=== PATIENT | female | born 1955 | race Caucasian/White ===

== ENCOUNTER 2016-10-23 12:00 | Emergency (ER) | payer OTHER ==
[~2016-10-23] VITALS: Wt 65.0 kg
[~2016-10-23 12:00] MED LIST: CALCIUM; DEPRESSION MED PO; LIPITOR PO; OMEPRZOLE PO; SLEEPING MED PO; VITAMIN D
[2016-10-23] MEDS ORDERED: ALBUTEROL 0.5% (NEB) 2.5 MG/0.5 ML AMP HHN STA (12:43)
[2016-10-23] MEDS ORDERED: predniSONE 20 MG TAB PO ONE (13:00)
[2016-10-23 13:17] LABS: BASOPHILS % 0.2 % (0.0-2.0); CONDITION 1; EOSINOPHILS # 0.1 10^3/ul (0.0-0.5); EOSINOPHILS % 1.1 % (0.0-7.0); HEMATOCRIT 38.5 % (37.0-47.0); HEMOGLOBIN 13.2 g/dl (12.0-16.0); LYMPHOCYTES # 4.5 10^3/ul (0.8-2.9); LYMPHOCYTES % 38.8 % (15.0-51.0); MEAN CORPUSCULAR HEMOGLOBIN 32.3 pg (29.0-33.0); MEAN CORPUSCULAR HGB CONC 34.2 g/dl (32.0-37.0); MEAN CORPUSCULAR VOLUME 94.3 fl (82.0-101.0); MEAN PLATELET VOLUME 8.1 fl (7.4-10.4); MONOCYTE # 0.9 10^3/ul (0.3-0.9); MONOCYTES % 7.7 % (0.0-11.0); NEUTROPHILS % 52.2 % (39.0-77.0); PLATELET COUNT 428 10^3/UL (140-440); RED BLOOD COUNT 4.08 10^6/ul (4.20-5.40); UNCORRECTED WBC 11.5 10^3/ul (4.8-10.8); WHITE BLOOD COUNT 11.5 10^3/ul (4.8-10.8)
[2016-10-23 13:23] LABS: ALBUMIN 4.1 g/dl (3.3-4.9)
[2016-10-23 13:24] LABS: POTASSIUM 4.1 mmol/L (3.5-5.1)
[2016-10-23 13:26] LABS: BILIRUBIN,INDIRECT 0.1 mg/dl (0-1.1); BILIRUBIN,TOTAL 0.1 mg/dl (0.2-1.3); CREATININE 0.69 mg/dl (0.44-1.00)
[2016-10-23 13:27] LABS: ALBUMIN/GLOBULIN RATIO 0.97; CALCIUM 9.1 mg/dl (8.4-10.2); TOTAL PROTEIN 8.3 g/dl (6.1-8.1)
--- NOTE | 2016-10-23 13:36 | RADRPT ---
PROCEDURE: XR Chest. CLINICAL INDICATION: Cough, dyspnea TECHNIQUE: Single frontal chest x-ray. COMPARISON: None. FINDINGS: No acute infiltrate, pleural effusion or pneumothorax is identified. Cardiomediastinal silhouette i s within normal limits. The osseous structures are unremarkable. IMPRESSION: 1. Unremarkable chest x-ray. RPTAT: PP .Cain Traylor MD, MD Date Time Electronically viewed and signed by .Cain Traylor MD, on 10/23/2016 13:35 .R/
[2016-10-23] MEDS ORDERED: ALBU18HF INHALATION (13:55)
[2016-10-23] MEDS ORDERED: AZIT250T94 PO (13:55)
[2016-10-23] MEDS ORDERED: PRED20TA PO (13:55)
--- NOTE | 2016-10-23 13:58 | ERD ---
ER Documentation Chief Complaint Date/Time DATE: 10/23/16 TIME: 13:55 Chief Complaint COUGH AND CONGESTION WITH SOME DIZZINES AND NAUSEA FOR 1 MONTH HPI This 61-year-old female is brought in by the family for cough and congestion intermittently for last month. She has also been having some nausea and decreased appetite. She possibly has complaints of dizziness as well. There is no history of fevers, chest pain, vomiting, abdominal pain, diarrhea. ROS All systems reviewed and are negative except as per history of present illness. Medications Home Meds Active Scripts Albuterol Sulfate* (Ventolin HFA*) 18 Gm Hfa.aer.ad, 2 PUFF INHALATION Q4H, #1 INHALER Prov:NANCY BOOTH MD 10/23/16 Prednisone* (Prednisone*) 20 Mg Tab, 40 MG PO DAILY for 4 Days, TAB Start October 24, 2016 Prov:NANCY BOOTH MD 10/23/16 Azithromycin* (Zithromax*) 250 Mg Tablet, 250 MG PO .ZPACK DIRECTED, #6 TAB TAKE 500 MG (2 TABS) THE FIRST DAY THEN 250 MG (1 TAB) DAYS 2-5 Prov:NANCY BOOTH MD 10/23/16 Reported Medications [Omeprzole] No Conflict Check, PO 03/17/14 [Lipitor] No Conflict Check, PO 03/17/14 [Sleeping Med] No Conflict Check, PO 03/17/14 [Depression Med] No Conflict Check, PO 03/17/14 [Vitamin D] No Conflict Check 03/17/14 [Calcium] No Conflict Check 03/17/14 Allergies Allergies: Coded Allergies: No Known Allergy (Unverified , 03/17/14) PMhx/Soc Anesthesia Reaction: No Hx Neurological Disorder: Yes (VERTIGO, MIGRAINES) Hx Respiratory Disorders: No Hx Cardiac Disorders: No Hx Psychiatric Problems: Yes (DEPRESSION) Hx Miscellaneous Medical Probl: No Hx Alcohol Use: No Hx Substance Use: No Hx Tobacco Use: Yes Smoking Status: Never smoker Physical Exam Vitals Vital Signs Date Time Temp Pulse Resp B/P Pulse Ox O2 Delivery O2 Flow Rate FiO2 10/23/16 13:24 78 24 94 21 10/23/16 12:22 98.0 76 18 136/71 97 Physical Exam Const: [] Alert, [id number]. Head: Atraumatic Eyes: Normal Conjunctiva ENT: Normal External Ears, Nose and Mouth. Neck: Full range of motion..~ No meningismus. Resp: Clear to auscultation bilaterally. There is slightly wheezy cough without significant wheeze or rales or at rest and no retractions. Cardio: Regular rate and rhythm, no murmurs Abd: Soft, non tender, non distended. Normal bowel sounds Skin: No petechiae or rashes Back: No midline or flank tenderness Ext: No cyanosis, or edema Neur: Awake and alert Psych: Normal Mood and Affect Result Diagram: 10/23/16 1300 10/23/16 1300 Results 24 hrs Laboratory Tests Test 10/23/16 13:00 Alanine Aminotransferase (ALT/SGPT) 74IU/L Albumin 4.1g/dl Albumin/Globulin Ratio 0.97 Alkaline Phosphatase 153IU/L Anion Gap 19 Aspartate Amino Transf (AST/SGOT) 35IU/L Basophils # 0.010^3/ul Basophils % 0.2% Blood Urea Nitrogen 22mg/dl Calcium Level 9.1mg/dl Carbon Dioxide Level 27mmol/L Chloride Level 104mmol/L Creatinine 0.69mg/dl Direct Bilirubin 0.00mg/dl Eosinophils # 0.110^3/ul Eosinophils % 1.1% Globulin 4.20g/dl Glucose Level 83mg/dl Hematocrit 38.5% Hemoglobin 13.2g/dl Indirect Bilirubin 0.1mg/dl Lymphocytes # 4.510^3/ul Lymphocytes % 38.8% Mean Corpuscular Hemoglobin 32.3pg Mean Corpuscular Hemoglobin Concent 34.2g/dl Mean Corpuscular Volume 94.3fl Mean Platelet Volume 8.1fl Monocytes # 0.910^3/ul Monocytes % 7.7% Neutrophils # 6.010^3/ul Neutrophils % 52.2% Nucleated Red Blood Cells # 0.010^3/ul Nucleated Red Blood Cells % 0.0/100WBC Platelet Count 28407^3/UL Potassium Level 4.1mmol/L Red Blood Count 4.0810^6/ul Red Cell Distribution Width 13.0% Sodium Level 146mmol/L Total Bilirubin 0.1mg/dl Total Protein 8.3g/dl White Blood Count 11.510^3/ul Current Medications Medications (Trade) Dose Ordered Sig/Ann Route PRN Reason Start Time Stop Time Status Last Admin Dose Admin Albuterol (Proventil 0.5% (Neb)) 2.5 mg ONCE STAT HHN 10/23/16 12:43 10/23/16 12:45 DC 10/23/16 13:24 Prednisone (Prednisone) 40 mg ONCE ONCE PO 10/23/16 13:00 10/23/16 13:01 DC 10/23/16 12:58 Procedures/MDM EKG: Rate/Rhythm: [Normal Sinus Rhythm] rate equals 75 QRS, ST, T-waves: [No changes consistent w/ acute ischemia] Impression: [No evidence of ischemia or arrhythmia] Chest X-ray 1V Interpreted by me: Soft Tissue: No acute abnormalities Bones: No acute abnormalities Mediastinum/Cardiac Silhouette/Lungs: [No acute abnormalities]. Impression- normal 1 view chest x-ray CBC shows very slight leukocytosis with a viral pattern and CMP shows no significant acute abnormalities, only slight transaminitis and elevated sodium and BUN.. Urine is negative for infection, nitrites, glucose, blood. Patient was given prednisone 40 mg by mouth and albuterol treatment 1. Patient had improved breath sounds and felt much better after observation treatment. Patient presents with cough and multiple complaints including dizziness decreased appetite for last month with no identifiable acute abnormalities. She did respond to albuterol for her wheezing and she will be treated with insulin, Zithromax and a short course of prednisone at home instructions to follow-up with primary doctor this week. Patient is advised otherwise return for fevers, blood, shortness breath, chest pain, new or worsening symptoms as directed and aftercare instruction. Examination today shows no evidence of hypoxemia, respiratory distress, CHF, acute coronary syndrome, pulmonary embolism, acute abdomen, UTI, additional emergent conditions . Departure Diagnosis: Primary Impression: Dizzy Additional Impression: URI, acute Condition: Stable Patient Instructions: Bronchitis With Wheezing (Adult), Dizziness, Unk Cause Additional Instructions: Examines normal hoy. VAMOS A TRATAR PARA INFECCION. Cheque otro vez con marcus doctor primario en el proximo barry or regresa para mas o nueva simptomas. NANCY BOOTH MD Oct 23, 2016 13:58
[2016-10-23 14:41] VITALS: TEMP 98.2
== END 2016-10-23 15:34 | disposition home or self-care (01) ==
LOC: FTE 12:00
DX: R42 Dizziness and giddiness (principal); J06.9 Acute upper respiratory infection, unspecified; Z72.0 Tobacco use
CPT/HCPCS: 71010; 80053; 85025; 93005; 94640; 94664; J7512; Z7502; Z7610